=== PATIENT | female | born 1985 | race Caucasian/White ===

== ENCOUNTER 2022-12-15 09:20 | Outpatient (CLI) | payer MEDICAID, SELFPAY | END 2022-12-15 09:21 | disposition home or self-care (01) | LOC: NFLDREF 12-18 12:02 | PROVIDERS: Visit Provider Advanced Practice Midwife | DX: Z34.03 Encounter for supervision of normal first pregnancy, third trimester (principal); O99.320 Drug use complicating pregnancy, unspecified trimester; F12.90 Cannabis use, unspecified, uncomplicated; O26.849 Uterine size-date discrepancy, unspecified trimester; O26.843 Uterine size-date discrepancy, third trimester; Z3A.37 37 weeks gestation of pregnancy | CPT/HCPCS: 80306; 87081; 87653 ==

== ENCOUNTER 2022-12-15 17:03 | Outpatient (CLI) | payer MEDICAID, SELFPAY ==
--- NOTE | 2022-12-15 17:00 | CRLHL7_ITS ---
For Patients: As a result of the Century Cures Act, medical imaging exams and procedure reports are released immediately into your electronic medical record. You may view this report before your referring provider. If you have questions, please contact your health care provider. INDICATION: Size less than dates COMPARISON: none TECHNIQUE: Real time hinkle scale imaging of the fetus was performed as well as color Doppler and spectral Doppler analysis of the umbilical artery. FINDINGS: Sonographic imaging demonstrates a single living intrauterine gestation. Fetus demonstrates a regular cardiac rate of 141 beats per minute. Fetus has a vertex position. The placenta lies anteriorly. Amniotic fluid volume appears normal and there is a single deepest vertical pocket: 6.0 cm. The estimated weight is 2468gm which lies at the 7th %. BPD 8th percentile. HC 7th percentile. AC 10th percentile. FL less than 3rd percentile. The HC/AC ratio measures 1.03 range (0.93-1.11). There is adequate diastolic blood flow within the umbilical artery. The S/D ratio measures 2.6. Normal gross body movements, tone and respiratory activity. IMPRESSION: Sonographic gestational age 34 weeks 5 days and sonographic due date 01/21/2023. Sonographic age 16 days behind the clinical age. Estimated weight 7th percentile. Abdominal circumference 10th percentile. Femur length less than 3rd percentile. Biophysical profile 09/23. Dictated by Mat Naqvi MD @ 12/16/2022 11:27:38 AM (Electronically Signed)
== END 2022-12-15 17:04 | disposition home or self-care (01) ==
PROVIDERS: Visit Provider Advanced Practice Midwife
DX: O36.5930 Maternal care for other known or suspected poor fetal growth, third trimester, not applicable or unspecified (principal); Z3A.34 34 weeks gestation of pregnancy
CPT/HCPCS: 76816; 76819; 76820

== ENCOUNTER 2023-01-11 07:40 | Inpatient (IN) | payer MEDICAID, SELFPAY ==
[2023-01-11] VITALS (11 sets, daily range): BP systolic 109–128; BP diastolic 72–86; PULSE 81–120; RESP 16; TEMP 36.6–37.2; O2SAT 99; BMI 30.5
[2023-01-11 07:40] LABS: Amnisure Rom* POSITIVE
[2023-01-11 08:02] LABS: Basophils Percent Auto 0.3 % (0.0-3.0); Eosinophils Percent Auto 1.2 % (0.0-7.0); Hematocrit 37.4 % (33.0-51.0); Immature Granulocytes Pct Auto 0.4 %; Lymphocytes Percent Auto 23.2 % (20-44); Mean Corpuscular HGB Conc 35 gm/dL (32-36); Mean Corpuscular Hemoglobin 33 pg (26-34); Mean Corpuscular Volume 95 fL (80-100); Monocytes Percent Auto 6.8 % (0.0-11.0); Neutrophils Percent Auto 68.1 % (42.0-72.0); Platelet Count* 178 K/uL (140-440); Red Blood Count 3.93 m/uL (4.00-5.20); White Blood Count* 11.23 K/uL (4.50-11.00)
[2023-01-11] MEDS: LACTATED RINGERS 1000 ML 1,000 ML 500 ML IV (08:14)
[2023-01-11 08:35] LABS: Slide Review Reflex No
--- NOTE | 2023-01-11 08:49 | CRLHL7_ITS ---
For Patients: As a result of the Cures Act, medical imaging exams and procedure reports are released immediately into your electronic medical record. You may view this report before your referring provider. If you have questions, please contact your health care provider. INDICATION: 37 year-old female. Advanced maternal age. TECHNIQUE: Transabdominal obstetrical ultrasound. Grayscale and color spectral Doppler waveform analysis of the umbilical artery performed. COMPARISON: December 15, 2022. FINDINGS: Single living intrauterine in vertex presentation. Anterior placenta. No placenta previa. The full cervix is not seen. heart rate 134 beats per minute. Normal amniotic fluid volume index 12.6 cm. Biophysical profile score 8/8 with 2 points given each for breathing, movement, tone, and amniotic fluid. Biparietal diameter 9.0 cm, 36 weeks 3 days. Head circumference 33 cm, 37 weeks 4 days. Abdominal circumference 34.6 cm, 38 weeks 4 days. Femur length 7 cm, 36 weeks 0 days. Composite calculated ultrasound age 37 weeks 1 day with a sonographic due date of January 31, 2023. This is not concordant with the age based on the last menstrual period provided. This is also delayed by 10 days when correlated with the prior ultrasound which indicated a sonographic due date of January 21, 2023. Estimated weight 3253 g which lies at the 14th percentile. The head to abdominal circumference ratio is normal at 0.95 (0.92-1.05). The umbilical artery systolic to diastolic ratio is 2.7. The resistive index is 0.95. Adequate diastolic blood flow within the umbilical artery. IMPRESSION: 1. Single living intrauterine in vertex presentation. Anterior placenta. 2. Normal amniotic fluid. 3. Normal biophysical profile score 8/8. 4. Composite calculated ultrasound age 37 weeks 1 day with a sonographic due date of January 31, 2023. 5. Percentile growth 14 percent. Dictated by Simon Espinoza MD @ 01/11/2023 11:59:36 AM (Electronically Signed)
--- NOTE | 2023-01-11 08:55 | W.PM.LDBA ---
Subjective History of Present Illness Narrative: Patient is being admitted to Labor and Delivery for SROM with clear fluid. She is a 37 year old at 40.6 weeks gestation. Her full history and physical was dictated by Bronson Espana CNM on 12/15/22. Please see this for details. Nasra experienced SROM this morning around 0400. She has had clear fluid with an occasional pink tinged fluid. She has noticed some contractions with a slight increase since rupture but she is still comfortable with contractions. She has declined ultrasound previously for surveillance of a known IUGR fetus. We discussed the rational for a suggested ultrasound today and she is agreeable to an ultrasound. She is hesitant to augment labor hoping to go into labor on my own and wait until she (baby) is ready. We discussed that based on the ultrasound we will have a better idea of how much labor stress that baby will be likely to tolerate. she did initially have some late decelerations but they resolved with position changes and IV fluid resuscitation. Specific Issues/Plans FOB not involved H&P done by Bronson Espana CNM on 12/15/22 needs Hep B drawn 1. AMA declined genetic screen had FAS at other facility, no abnormalities (not a level II) 2. Measuring small for gestation measured small at first visit with us Growth u/s ordered at 37 weeks: EFW 7%, BPP 8/8, adequate flow in umbilical artery recommended IOL between 38-39weeks pt declined IOL, BPP ordered for 12/22 with clinic visit-declined NST 12/23 and 12/31 reactive Signed AMA form on 12/23 01/07 continues to measure small, declines IOL and BPP 3.Hx of genital herpes pt has RX from prior provider 4. Hx of THC use in early no UDS found in records, Neg at 37 weeks OB Labs: ? Blood type: B+, antibody screen negative. ? Hgb: 13.3 ? Platelets: 241 ? Rubella: Immune ? Varicella: Immune RPR: non-reactive ? HBsAg: non-reactive ?noted in notes, did not see lab results in records Hep C: negative HIV: negative ? UC: negative GC/Chlamydia: negative/negative ? Pap (06/30/22): negative HPV, NILM? Genetic screening: declined 1hr gtt: 61 COVID: 2020 initial series, not boosted Flu: declines TDAP: RSV: declines 32wk Mental Health: 12/02/2022 34wk Hgb: OB - Problem Based A/P Additional Plan (1) growth restriction antepartum: Status: Acute (2) AMA (advanced maternal age) multigravida 35+: Status: Acute (3) SROM (spontaneous rupture of membranes): Status: Acute Plan ASSESSMENT:? at 40.6 weeks gestation? GBS negative? ?comlicated by IUGR and AMA PROM with clear fluid? ?? PLAN:? 1. Agreeable to a growth US with BPP and Doppler ultrasonography 2. Expectant management at this time per patient request. May change based on US results. 3. Candidate for analgesia of choice. 4. Anticipate ? 5. IV in place for access and fluid bolus. 6. Continuous monitoring due to IUGR. 7. MD aware and agreeable to plan at this time. Will continue to update as labor progresses. 8. UDS recommended per protocol based on past use. Declines at this time but is considering. ? Delivery/Labor/Induction Plan Plan: expectant management OB Result Labs Blood Type: B (+) positive GBS Status: negative OB Exam Physical Exam Vital signs: Temp Pulse Resp BP Pulse Ox 98.9 F 103 H 16 109/72 99 01/11/23 08:22 01/11/23 08:22 01/11/23 08:22 01/11/23 08:22 01/11/23 06:58 Narrative: Psychiatric:? Alert and oriented x3? HEENT:? Normocephalic, atraumatic? Neck:? Supple without adenopathy or thyromegaly? Lungs:? Clear to auscultation bilaterally? Heart:? Regular rate and rhythm, no murmur, rub or gallop? Abdomen:? Soft, nontender, and gravid? Extremities:? No edema or erythema? Detailed Labor and Delivery Exam Patient Gravid: Yes Dilation (cm): 1 (per RN exam) Effacement (%): 30 Consistency: soft Tachysystole: No Contraction intensity: Mild Fetus (Single) Station: -3 Amniotic Membrane Status: SROM Amniotic Membrane Fluid Description: Clear Heart Rate Baseline: 140 Monitor Accelerations: Present Monitor Decelerations: None Chcf Variability: Moderate (6-25)
[2023-01-11 10:03] LABS: Hepatitis B Surface Antigen* Negative (Negative)
[2023-01-11] MEDS: LACTATED RINGERS 1000 ML 1,000 ML 125 ML IV (10:16)
[2023-01-11 10:19] LABS: Amphetamine Screen Urine Negative (Negative); Barbiturate Screen Urine Negative (Negative); Benzodiazepines Screen Urine Negative (Negative); Cannabinoid Screen Urine Negative (Negative); Cocaine Screen Urine Negative (Negative); Methadone Screen Urine Negative (Negative); Methamphetamines Screen Urine Negative (Negative); Opiate Screen Urine Negative (Negative); Oxycodone Screen Urine Negative (Negative); Phencyclidine Screen Urine Negative (Negative); Tricyclic Antidepressant Urine Negative (Negative)
[2023-01-11 10:29] LABS: Hepatitis B Surface Antibody* Positive (Negative)
--- NOTE | 2023-01-11 16:53 | PM.OBPNL ---
Subjective Time Seen by Provider: 16:54 Date Seen: 01/11/23 Narrative: I discuses with the patient steps to proceed with labor around 1600 as she had been ruptured 12 hours at that time. She had been encouraged by myself ad the RN to move, change positions, do the labor warm up circuit, and/or pump to encourage labor. She was resistant most of the morning. She did do some swaying and walking mixed with sitting. she was feeling slightly more uncomfortable cramping at a 4-5/10 about every 5 minutes but was not pausing thorough contractions when I was talking to her. We discussed options in depth including expectant management, PO Cytotec, and IV Pitocin. We did discuss the option of a SVE to check on cervical change or to proceed with augmentation without a cervical check. She choose a cervical check and was found to be mostly unchanged with only slight additional effacement and slightly lower but still ballotable. She was 1.5cm/50%/-2 and ballotable. With this knowledge we again reviewed options and I recommended augmentation with Pitocin. Did give her the option of Cytotec but did discuss that there was a chance that there may be intolerance given that baby had occasional late decels and that we would have to switch to Pitocin. She asked for some time to think about her options and I stepped out of the room. She walked in the bowers for a bit then called me back to review her decision about 45 minutes later. At that time she stated that she would like to discharge home to labor there as she felt that she would be more comfortable laboring there and felt she would be more likely to go into labor on her own away from the hospital setting. I Asked if there was anything that we could do to make her more comfortable here and she denies. She stated that she felt that she shouldn't have come in this morning after rupture and that she should have stayed at home to wait for labor. I Educated her that she did make the correct decision coming in and that was the safest decision for her and her baby. I stated that I was not comfortable with her decision to go home given that she has been ruptured without signs of labor for greater than 12 hours and because the tracing had not been consistently category 1. Discussed again that baby has had occasional late decelerations that can indicate a compromised fetus. Although the tracing at this time was reassuring, given the history it was a good possibility that baby could return to a category 2 or worse. I discussed the risks of prolonged rupture including infection and intolerance. Discussed that tolerance and status can decrease or stop suddenly and without signs or symptoms without continuous monitoring. Risks discussed included and/or maternal injury or . She voiced understanding of the recommendations and risks, denied questions and is still requesting to discharge. We discussed that I would not sign a discharge order for her and that she would have to sign against medical advice documentation before leaving to acknowledge that she understands the risks and recommendations. Reiterated multiple times that I was concerned for her and her baby with this decision. Encouraged her to return in a few hours. She states that she would likely return by 12 hours if not before. Encouraged her to consider not more than 6 hours. The risks, concerns, and warning signs were reviewed again by the RN before signing the AMA paperwork. She was accompanied by her parents. Objective Vital Signs: Last Vital Signs Temp 98.7 F 01/11/23 16:40 Pulse 93 01/11/23 16:40 Resp 16 01/11/23 16:40 BP 128/86 01/11/23 16:40 Pulse Ox 99 01/11/23 06:58 Pelvic Exam Dilation (cm): 1.5 Effacement (%): 50 Station: -2 Comments: bollatable Contractions Monitor mode: External Contraction Frequency: 2-5 Contraction pattern: Irregular Contraction intensity: Mild Assessment Assessment: early labor Station: -3 Amniotic Membrane Status: SROM Status: Category ll Heart Rate Baseline: 140 Senior Living Variability: Moderate (6-25) (some periods of minimal) Monitor Accelerations: Present Monitor Decelerations: Late (occasional, none present at this time) Plan Plan: Encouraged augmentation with pitocin or cytotec. Declines and leaving AMA.
[2023-01-13 18:49] LABS: Hepatitis B Core Antibody, IgM Negative (Negative)
== END 2023-01-11 17:28 | disposition left against medical advice (07) | DRG 833 ==
LOC: OB OUT 07:41 → OB 07:41
PROVIDERS: Admitting Provider Advanced Practice Midwife; Visit Provider Advanced Practice Midwife
DX: O42.92 Full-term premature rupture of membranes, unspecified as to length of time between rupture and onset of labor (principal); O36.5930 Maternal care for other known or suspected poor fetal growth, third trimester, not applicable or unspecified; Z86.19 Personal history of other infectious and parasitic diseases; O99.344 Other mental disorders complicating childbirth; F41.9 Anxiety disorder, unspecified; Z3A.40 40 weeks gestation of pregnancy; O36.8330 Maternal care for abnormalities of the fetal heart rate or rhythm, third trimester, not applicable or unspecified
CPT/HCPCS: 36415; 76815; 76819; 76820; 80306; 84112; 85025; 86705; 86706; 86850; 86900; 86901; 87340; J7120

== ENCOUNTER 2023-01-12 01:09 | Inpatient (IN) | payer MEDICAID, SELFPAY ==
[2023-01-12] VITALS (10 sets, daily range): BP systolic 93–133; BP diastolic 52–93; PULSE 68–96; RESP 16–18; TEMP 36.6–36.9; O2SAT 97–98; BMI 30.6
--- NOTE | 2023-01-12 02:26 | W.PM.LDBA ---
Subjective History of Present Illness Narrative: Patient is being admitted again to Labor and Delivery after leaving AM earlier in the evening. She is a 37 year old at 41.0 weeks gestation. Her full history and physical was dictated by Bronson Espana CNM on 12/15/22. Please see this for details. She has labored at home. She states that she has worked to increase the frequency and strength of her contractions with movement and stretches. She felt that her contractions were more intense and decided to return. On admit she was found to be 1.5cm/75%/-2 and posterior by RN exam. We again had a discussion about augmenting labor. We discussed Pitocin and Cytotec but I did not recommend Cytotec given her contractions spacing along with the late decelerations that were noted on the tracing up to this point. She was again hesitant to do any interventions stating that she wanted to forget the 24 hour clock and trust that her body will begin labor on its own. I again discussed my concerns for baby tolerating labor and the possibility of additional stress that prolonged rupture could present since baby is already showing some signs of stress with late decelerations. Discussed that she could be at an increased risk of a delivery due to intolerance of labor. She states that she wants to give her body a few more hours to see what happens. She would like therapeutic rest after the risks and benefits were discussed. She hesitantly agreed to consider augmentation in a couple of hours if her contractions decrease in frequency and/or intensity. Specific Issues/Plans FOB not involved H&P done by Bronson Espana CNM on 12/15/22 needs Hep B drawn 1. AMA declined genetic screen had FAS at other facility, no abnormalities (not a level II) 2. Measuring small for gestation measured small at first visit with us Growth u/s ordered at 37 weeks: EFW 7%, BPP 8/8, adequate flow in umbilical artery recommended IOL between 38-39weeks pt declined IOL, BPP ordered for 12/22 with clinic visit-declined NST 12/23 and 12/31 reactive Signed AMA form on 12/23 01/07 continues to measure small, declines IOL and BPP 3.Hx of genital herpes pt has RX from prior provider 4. Hx of THC use in early no UDS found in records, Neg at 37 weeks OB Labs: ? Blood type: B+, antibody screen negative. ? Hgb: 13.3 ? Platelets: 241 ? Rubella: Immune ? Varicella: Immune RPR: non-reactive ? HBsAg: non-reactive ?noted in notes, did not see lab results in records Hep C: negative HIV: negative ? UC: negative GC/Chlamydia: negative/negative ? Pap (06/30/22): negative HPV, NILM? Genetic screening: declined 1hr gtt: 61 COVID: 2020 initial series, not boosted Flu: declines TDAP: RSV: declines 32wk Mental Health: 12/02/2022 34wk Hgb: OB - Problem Based A/P Additional Plan (1) SROM (spontaneous rupture of membranes): Status: Acute (2) AMA (advanced maternal age) multigravida 35+: Status: Acute (3) growth restriction antepartum: Status: Acute (4) Prolonged rupture of membranes: Status: Acute Plan ASSESSMENT:? at 41.0 weeks gestation? GBS negative? complicated by IUGR and AMA. Latest US shows EFW 14%.? Ruptured greater than 22hours. ?? PLAN:? 1. Reviewed risks and benefits of augmentation with Pitocin vs Cytotec. Recommended Pitocin. Declines at this time. Educated on the risks of prolonged ROM. 2. Candidate for analgesia of choice. Planning unmedicated .? 3. Therapeutic rest. She will consider Pitocin after 2 hours of rest. 4. Anticipate ? 5. Expectant management at this time.? 6. Recommend saline lock IV placed for periods of category II tracing and IUGR. 7. Continuous monitoring for IUGR diagnosis and category II tracing.? ? OB Result Labs Blood Type: B (+) positive GBS Status: negative OB Exam Physical Exam Vital signs: Pulse BP Pulse Ox 88 123/86 98 01/12/23 01:20 01/12/23 01:20 01/12/23 01:20 Narrative: Psychiatric:? Alert and oriented x3? HEENT:? Normocephalic, atraumatic? Neck:? Supple without adenopathy or thyromegaly? Lungs:? Clear to auscultation bilaterally? Heart:? Regular rate and rhythm, no murmur, rub or gallop? Abdomen:? Soft, nontender, and gravid? Extremities:? No edema or erythema? Detailed Labor and Delivery Exam Patient Gravid: Yes Dilation (cm): 1 (1.5 per RN exam) Effacement (%): 75 Cervix position: posterior Contraction Frequency: 3-5 Tachysystole: No Contraction intensity: Moderate Fetus (Single) Station: -2 Amniotic Membrane Status: SROM Amniotic Membrane Fluid Description: Clear Heart Rate Baseline: 140 Monitor Accelerations: Present Monitor Decelerations: Late (occasional ) Care Home Variability: Moderate (6-25)
[2023-01-12] MEDS: hydrOXYzine pamoate 25 MG CAPSULE 100 MG PO (02:36)
[2023-01-12] MEDS: MORPHINE 10 MG/ML inj IM (02:37)
[2023-01-12] MEDS: CALCIUM CARBONATE 500 MG CHEW PO (02:37)
--- NOTE | 2023-01-12 06:26 | P.OBPN_ITS ---
Subjective Date Seen: 01/12/23 Narrative: Nasra did sleep for a while and was appreciative of that rest. I again discussed a plan as her contractions have spaced out to 6-8 minutes apart. Baby is still having lates with many of the contractions. I again emphasized my concerns with prolonged rupture and baby showing signs of intolerance to contractions. I did offer her Cytotec and Pitocin but did encourage Pitocin over Cytotec due to the added risks of not knowing how baby will tolerate it. She would again like some time to think about it before making a decision. She was informed that the next shift will be coming on in about 1 hours and that provider will be in to talk about her decision unless she wants to make a decision before then. I answered any questions she did have and we did discuss risks to baby and her with prolonged rupture. Offered another SVE with education about limiting cervical checks after ROM but she declined. Objective Vital Signs: Last Vital Signs Temp 98.2 F 01/12/23 06:02 Pulse 68 01/12/23 06:02 Resp 16 01/12/23 06:02 BP 93/52 L 01/12/23 06:02 Pulse Ox 97 01/12/23 06:02 Contractions Monitor mode: External Contraction Frequency: 6-8 Contraction pattern: Irregular Contraction intensity: Moderate Assessment Assessment: early labor Station: -2 Amniotic Membrane Status: SROM Status: Category ll Heart Rate Baseline: 140 [place] Variability: Moderate (6-25) Monitor Accelerations: Present Monitor Decelerations: Late (with greater than half of contractions ) Plan Plan: Recommended Pitocin titration. Will wait for her to make a decision. Monitor VS per protocol. UDS per unit policy for leaving AMA. Encourage activity, labor warm up, and pumping or nipple stimulation to help encourage labor after sleep.
[2023-01-12 06:40] LABS: Amphetamine Screen Urine Negative (Negative); Barbiturate Screen Urine Negative (Negative); Benzodiazepines Screen Urine Negative (Negative); Cannabinoid Screen Urine Negative (Negative); Cocaine Screen Urine Negative (Negative); Methadone Screen Urine Negative (Negative); Methamphetamines Screen Urine Negative (Negative); Opiate Screen Urine Negative (Negative); Oxycodone Screen Urine Negative (Negative); Phencyclidine Screen Urine Negative (Negative); Tricyclic Antidepressant Urine Negative (Negative)
--- NOTE | 2023-01-12 07:33 | PM.OBPNL ---
Subjective Time Seen by Provider: 07:34 Date Seen: 01/12/23 Narrative: Nasra is currently resting in bed. She states she is barely feeling the contractions at this time. We reviewed that they have spaced to 5-9 min apart and are not strong. We reviewed the increased risk of infection the longer she is ruptured and not in labor. That this could mean a if the baby was not tolerating it, as their heart rate often goes up. This would also likely mean antibiotics for both her and baby. We also reviewed the early and late decels that we are seeing with contractions, and that the longer the process is the less likely that the baby will tolerate the continued contractions and the increased risk of infection. The recommendation at this time remains pitocin augmentation because of these reasons. We did review the options of cytotec, with the risk being that it can not be stopped or slowed down like pitocin. Also reviewed the option of AROM, as she is not leaking much fluid. She continues to decline all of these options despite being aware of the risks. She is aware to tell the RN/CNM if she desires to proceed with any of these options. Objective Exam: VSS, afebrile General Appearance:? Calm, cooperative. No acute distress. ? Psychiatric Exam: Alert and oriented, appropriate affect Abdomen: Gravid Ctx: ?Q 5-9 min apart. ?Mild FHTs: Baseline: 130. Variability: min - mod. Accels: rare. Decels: early & lates with most contractions. SVE: deferred at this time. Membranes: SROM AROM X 27.5 hours ? Vital Signs: Last Vital Signs Temp 98.4 F 01/12/23 07:08 Pulse 72 01/12/23 07:31 Resp 16 01/12/23 07:08 BP 94/62 01/12/23 07:31 Pulse Ox 97 01/12/23 06:02 Assessment Heart Rate Baseline: 140 Plan Plan: Assessment:?? at 41.0 gestation?? GBS neg Patient is coping well with challenges of labor.?? PROM, clear fluid. -Not in labor. Declines IOL/augmentation Not in labor complicated by: -AMA -IUGR. -EFW 7% at 37 weeks. -Declined most follow up BPPs, monitoring and induction -u/s yesterday shows EFW 14%, ALEXIS WNL at 12.6, BPP 8/8 and normal cord doppler -Hx of genital herpes, on valtrex -Hx of THC use in early -Neg at 37 weeks Labor complicated by: -PROM, not in labor, declining IOL/augmentation -late decels ? Plan:?? Will continue to encourage IOL/Augmentation for PROM. Dr. Martini also aware. Continue to monitor for late decelerations, infection, or other complications. Continue with routine intrapartum cares as ordered.?? Patient encouraged to move and change positions, including labor circuit to promote physiologic labor and .?? Nonpharmacologic comfort measures per patient preference. Candidate for analgesia of choice if desired. Anticipate progress to NVD.
--- NOTE | 2023-01-12 11:41 | PM.OBPNL ---
Subjective Time Seen by Provider: 11:30 Date Seen: 01/12/23 Narrative: Nasra has decided again to leave AMA. She states she came in last night because the contractions were increasing in intensity, but that they seem to have down again at this time. She is aware of the recommendation for augmentation and has declined it. When asked what her ultimate plan was if she did not go into labor, she stated she would likely be ready to do something by Thursday, 2 days from now. We reviewed ways of encouraging labor, including castor oil, movement and acupressure, though she did not commit to trying any of these. Nipple stimulation was also offered previously and declined. We reviewed the risks of leaving AMA, including but not limited to infection for her and the baby, increased risk of for intolerance, infection, etc., risk of stillbirth, risk of brain damage. We reviewed that she should return if contractions increased in intensity, fluid became meconium stained, signs of infection occurred (fever, chills, vaginal/amniotic fluid odor. etc), movement was decreased, bleeding. She can return at any time for monitoring and/or augmentation. She should return tomorrow for an NST if she has not returned prior to that. AMA form signed. Her mother was present for this discussion also. Objective Exam: VSS, afebrile General Appearance:? Calm, cooperative. No acute distress. ? Psychiatric Exam: Alert and oriented, appropriate affect Abdomen: Gravid Ctx: ?Q 5-10 min apart. ?Mild FHTs: Baseline: 140. Variability: moderate. Accels: present. Decels: Occ early and late decels. SVE: deferred at this time Membranes: SROM X 31.5 hours ? Vital Signs: Last Vital Signs Temp 98.4 F 01/12/23 10:29 Pulse 90 01/12/23 08:44 Resp 16 01/12/23 10:29 BP 133/93 H 01/12/23 08:44 Pulse Ox 97 01/12/23 06:02 Plan Plan: Assessment:?? at 41.0 gestation?? GBS negative complicated by: -AMA -IUGR. -EFW 7% at 37 weeks. -Declined most follow up BPPs, monitoring and induction -u/s yesterday shows EFW 14%, ALEXIS WNL at 12.6, BPP 8/8 and normal cord doppler -Hx of genital herpes, on valtrex -Hx of THC use in early -Neg at 37 weeks Labor complicated by: -PROM X 31.5, not in labor, declining IOL/augmentation -Occ late and early decels, somewhat improved from earlier -declines to stay in hospital for continued monitoring ? Plan:?? AMA form signed. Risks to her and baby extensively reviewed. May return at any time. Return tomorrow for NST. Also reviewed concerning signs she should be seen for. Per pt, her plan would not be to allow any augmentation until possibly Thursday, 2 days from now.
== END 2023-01-12 11:55 | disposition left against medical advice (07) | DRG 832 ==
PROVIDERS: Admitting Provider Advanced Practice Midwife; Visit Provider Advanced Practice Midwife
DX: O42.12 Full-term premature rupture of membranes, onset of labor more than 24 hours following rupture (principal); O98.313 Other infections with a predominantly sexual mode of transmission complicating pregnancy, third trimester; A60.00 Herpesviral infection of urogenital system, unspecified; O36.5930 Maternal care for other known or suspected poor fetal growth, third trimester, not applicable or unspecified; Z3A.41 41 weeks gestation of pregnancy; O48.0 Post-term pregnancy
CPT/HCPCS: 80306; 85025; A9270; J2270

== ENCOUNTER 2023-01-13 09:43 | Inpatient (IN) | payer MEDICAID, SELFPAY ==
[2023-01-13] VITALS (25 sets, daily range): BP systolic 111–138; BP diastolic 73–90; PULSE 75–111; RESP 20; TEMP 36.6–37.2; O2SAT 86–100; BMI 30.6
[2023-01-13 10:15] LABS: Amphetamine Screen Urine Negative (Negative); Benzodiazepines Screen Urine Negative (Negative); Cannabinoid Screen Urine Negative (Negative); Cocaine Screen Urine Negative (Negative); Methamphetamines Screen Urine Negative (Negative); Opiate Screen Urine POSITIVE (Negative); Phencyclidine Screen Urine Negative (Negative); Tricyclic Antidepressant Urine Negative (Negative)
[2023-01-13 10:16] LABS: Barbiturate Screen Urine Negative (Negative); Methadone Screen Urine Negative (Negative); Oxycodone Screen Urine Negative (Negative)
--- NOTE | 2023-01-13 12:16 | P.LDBA_ITS ---
Subjective History of Present Illness Date Seen: 01/13/23 Narrative: Nasra is being admitted to Labor and Delivery for PROM without onset of labor. She had SROM on 01/11/23, she left AMA around 1800 on that day and returned on 01/12/23 around 0300, again left AMA around 1230. Today she returned for a NST. She is a 37 year old at 41.1weeks gestation. Her full history and physical was dictated by Bronson Espana CNM on 12/15/22. Please see this for details. Nasra was planning on leaving today AMA. After going to the bathroom just prior to leaving she noted yellow/green discharge on her pad. This has prompted her to stay for observation. At this time she is declining all augmentation of her labor including AROM, prostaglandins and Pitocin. We have discussed in detail the increased risk of infection for herself and baby, the risk of still , brain damage to the fetus and risk of needing further intervention at time of delivery for baby, including the risk of transfer to another facility. At this time she is not willing to move forward with induction of her labor. She will consider interventions at 1800 this evening. I have requested Dr. Segundo, OB-Land Examiner state federal relations deputy director to consult on this patient. Specific Issues/Plans FOB not involved H&P done by Bronson Espana CNM on 12/15/22 needs Hep B drawn 1. AMA declined genetic screen had FAS at other facility, no abnormalities (not a level II) 2. Measuring small for gestation measured small at first visit with us Growth u/s ordered at 37 weeks: EFW 7%, BPP 8/8, adequate flow in umbilical artery recommended IOL between 38-39weeks pt declined IOL, BPP ordered for 12/22 with clinic visit-declined NST 12/23 and 12/31 reactive Signed AMA form on 12/23 01/07 continues to measure small, declines IOL and BPP 3.Hx of genital herpes pt has RX from prior provider 4. Hx of THC use in early no UDS found in records, Neg at 37 weeks OB Labs: ? Blood type: B+, antibody screen negative. ? Hgb: 13.3 ? Platelets: 241 ? Rubella: Immune ? Varicella: Immune RPR: non-reactive ? HBsAg: non-reactive ?noted in notes, did not see lab results in records Hep C: negative HIV: negative ? UC: negative GC/Chlamydia: negative/negative ? Pap (06/30/22): negative HPV, NILM? Genetic screening: declined 1hr gtt: 61 COVID: 2020 initial series, not boosted Flu: declines TDAP: RSV: declines 32wk Mental Health: 12/02/2022 34wk Hgb: OB - Problem Based A/P Additional Plan (1) Prolonged rupture of membranes: Status: Acute (2) AMA (advanced maternal age) multigravida 35+: Status: Acute (3) growth restriction antepartum: Status: Acute (4) History of herpes genitalis: Status: Acute Plan Assessment:?? at 41.1 weeks gestation?? GBS negative? Patient is coping with challenges of labor.?? Labor type: PROM for greater than 48 hours without onset of labor. Category 2 FHR pattern.? complicated by: AMA >35 yr, FGR, 7% on initial measurements, last measurement showed 14% measuring small for dates, hx of genital herpes, THC use in early Labor complicated by: PROM for >48 hours without onset of labor? Plan:?? * ?Admit to L & D? * IV access: SL * Monitoring per policy: continuous ? * Candidate for analgesia of choice.? Planning no intervention for pain management * Encouraged to move forward with augmentation of her labor by any method agreeable to patient. Will continue to check in periodically. * Consult with OB-Land Examiner for prolonged ROM. * Patient encouraged to reposition and ambulate to promote physiologic labor and . * Anticipate ? Delivery/Labor/Induction Plan Plan: expectant management and other OB Exam Physical Exam Vital signs: Temp Pulse BP 98.4 F 80 116/73 01/13/23 10:31 01/13/23 10:31 01/13/23 10:31 Narrative: Vitals Reviewed Constitutional:? Alert and oriented x3 HEENT:? Normocephalic, atraumatic Neck:? Supple Lungs:? Clear to auscultation bilaterally Heart:? Regular rate and rhythm, no murmur, rub or gallop Abdomen:? Soft, nontender, and gravid. Vertex by Drake's, confirmed with cervical exam. Extremities:? No edema or erythema Cervix: declined by patient NST: 140 bpm/moderate variability/+accelerations/ occasional late decelerations/ irregular contractions Detailed Labor and Delivery Exam Patient Gravid: Yes
--- NOTE | 2023-01-13 13:24 | PM.OBCN1 ---
OB - CN: HPI Date of Consult Date Seen: 01/13/23 Consult date: 01/13/23 Requesting Physician: Mack Lassiter CNM Primary Care Provider: Mack Lassiter CNM Consult Narrative Narrative: Nasra is a 37-year-old [id number] woman at 41 weeks, 1 day gestation by LMP consistent with 1st trimester ultrasound, LEE , who is seen by kind request of Mack Lassiter for discussion of prolonged premature rupture of membranes post term. She had rupture membranes at 4:00 a.m. on 01/11/2023. Documented in previous notes, she has come to the Center for monitoring, but has opted to leave against medical advice, and has thus far refused induction of labor. Today, when presenting for monitoring, she was found to have yellow/green discharge, thought to be meconium staining, and she did opt to stay today for observation given this new finding. She is not having regular contractions. Group B strep testing was negative. Her problem list is also reviewed. It is most notable at this time for: 1. History of genital herpes. She was prescribed Valtrex 500 mg daily by an outside provider, which she has been taking as prescribed. The correct dose for HSV prophylaxis in is 500 mg b.i.d.. She is aware of no genital lesions. 2. Possible intrauterine growth restriction. Ultrasound on 12/16/2022, ordered for indication of size less than dates, showed EFW 2468 g, 7%. AC 10%. Umbilical artery Doppler was normal. BP was 8/8. MVP 6 cm. Follow-up ultrasound 01/11/2023 showed EFW 14%, AC within normal ranges. Umbilical artery Doppler was normal. Amniotic fluid was also normal. At time of her anatomy scan, EFW was apparently 12%. 3. She has a history of THC use, but she was negative on her drug testing from 30/ weeks. Social history: She is originally from [place]. Her parents live in the area. She was living in [place] for some time, and conceived while there. She has no relationship with the father of the baby at this time. Her parents have been visiting her in the hospital. She transferred care to [place] at 35 weeks in order to have care with midwives. She values nonintervention. History History 5 Elective abortions 3 Para 0 Spontaneous abortions 1 Hx # Term Pregnancies Ectopic pregnancies Hx # Pregnancies Multiple births Number of Living Children 0 Past Pregnancies Del. Date GA/Weeks Outcome Route wt Inf Gender Labor Lgth Anesthesia Location Provider Compli 02/16/14 elective 02/16/15 spontaneous 02/17/16 elective 02/17/20 elective Labs GBS status: negative OB Labs: Lab Assessment Start: 01/13/23 10:56 Freq: ONCE Status: Complete Protocol: PC.OBGBS Activity Type Activity Date Activity User E-sign Co-sign Detail Recorded Client Recorded Date Recorded By Document 01/13/23 10:56 ROMARIA ISABEL [id number] 01/13/23 10:58 ROYB 01/13/23 10:56 Lab Assessment GBS Status negative GBS Additional Criteria ROM Greater Than 18 Hours Is Patient Allergic to Penicillin? No Treatment Required OK Are Labs Available Yes Maternal Blood Type B Maternal RH Factor Positive Evaluate Maternal Rubella Immune Status Immune Hepatitis B Surface Antigen Negative Maternal HIV Status Negative Maternal Syphillis (RPR) Status Negative PFSH PFSH Medical History History of migraine headaches ?Z86.69 - Personal history of other diseases of the nervous system and sense organs (ICD-10) Family History Mother Depression Anxiety Father High blood pressure Arthritis Brother Anxiety Autism Maternal Grandmother Anxiety Depression Maternal Grandfather Parkinson disease Paternal Grandfather Parkinson disease Alzheimers disease Cancer Social History (Updated 12/15/22 @ 09:22 by Candelaria Espana CNM) Narrative: SOCIAL Education: associates 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 Safe at home Special Diet: plant based and vegetarian Ok with a blood transfusion: yes Culture or latter-day beliefs: denies RISK FACTORS Exercise Times/wk: walking daily less lately Depression/Anxiety: yes Previous Treatments as a teen Therapy recently doing some, encouraged to return if helpful KATHIA: 1 PHQ 9: 6 Seat Belt Use: Routinely Smoking: past Smoked 3-4 years, one per day Alcohol/day: Denies while Some minimal use in early , none since. When not rarely used. Caffeine: not with , was daily coffee drinker. Drug Use: THC , a couple medicine ceremonies, prior to . Reports THC use in early . What is your current living situation?: I presently have a place to live Problems where you live: no known problems In the past 12 months, utilities in danger of being shut off: no In past 12 months, lack of transportation kept you from medical appts, meetings, work, or getting things needed for daily living: no In the past 12 mos, have been you worried that your food would run out before you had money to buy more?: never true In the past 12 mos, the food you bought just didn't last and you didn't have money to buy more?: never true Smoking Status: Former smoker How often does anyone, including family, friends and others, physically hurt you: never How often does anyone, including family, friends and others, insult or talk down to you: never How often does anyone, including family, friends and others, threaten you with harm: never How often does anyone, including family, friends and others, scream or curse at you: never Little interest or pleasure in doing things: several days Feeling down, depressed, or hopeless: several days Meds Home Medications and Allergies Home Medications Medication Instructions Recorded Confirmed Type vits no.126-ferrous fum 4 tab PO DAILY 12/02/22 01/13/23 History 28 mg iron-folic acid 800 mcg tablet (Classic ) valacyclovir 500 mg tablet 500 mg PO QDAY 12/02/22 01/13/23 History (Valtrex) Allergies Allergy/AdvReac Type Severity Reaction Status Date / Time No Known Drug Allergies Allergy Verified 01/12/23 04:56 OB - H&P: Exam Physical Exam: Vital signs: Temp Pulse BP 98 F 82 131/90 H 01/13/23 13:12 01/13/23 13:12 01/13/23 13:12 Narrative: Physical exam: Vitals as noted above. General: No acute distress Psych: Alert and oriented x 3, full affect HEENT: Normocephalic, atraumatic OB - CN: A/P Assessment and Plan (1) Prolonged rupture of membranes: Status: Acute Assessment and Plan: Membranes ruptured greater than 48 hours. Now with new onset of suspected meconium-stained fluid. A probable cause of meconium staining is subclinical intra amniotic infection. I did review with the patient that this as a risk of prolonged rupture, consistent with what Mack has documented in her notes. I think that induction at this time is actually MOST consistent with her goals of having a that, overall, requires less intervention. I reviewed with the patient that intrauterine infection can lead to distress, prolonged labor, hemorrhage, and increased risk of . We discussed options of oral cytotec and pitocin, depending on cervical exam. (2) growth restriction antepartum: Status: Acute Assessment and Plan: Given this suspicion, continuous monitoring is advised. (3) History of herpes genitalis: Status: Acute Assessment and Plan: She has been using Valtrex at a low dose of 500 mg daily. I recommend increase to BID, per ACOG recommendations. Plan In summary, I medically recommend: 1. Cervical exam now, with induction of labor with pitocin or oral Cytotec, depending on exam. Of note, EITHER of these approaches can be stopped once she reaches active labor. 2. Vulvar and vaginal exam now, to rule out herpetic lesions. 3. Increase in Valtrex dosing to 500 mg BID. 4. Continuous monitoring, as is currently being used. These recommendations were discussed with both Mack and Nasra.
--- NOTE | 2023-01-13 14:20 | P.OBPN_ITS ---
Subjective Date Seen: 01/13/23 Narrative: ?Nasra is coping well with labor pain/contractions. ?She does not have anyone with her for support at this time. ?She would like to continue with movement, repositioning and relaxation for comfort and pain management.?She is agreeable to some kind of intervention to help her labor intensify around 1500 today. Objective Exam: VSS, afebrile General Appearance:? Calm, cooperative. ?No acute distress. ? Psychiatric Exam: Alert and oriented, appropriate affect Abdomen: Gravid Ctx: ?Q 2-4 min apart. ?Mild ? ? FHTs: ?Baseline: 135. ? ? Variability: moderate. ?Accels: +. ? ?Decels: ?-. SVE: deferred Membranes: ?SROM X 58 hours Visual exam of vulva and vagina: no signs of herpetic lesions Vital Signs: Last Vital Signs Temp 98 F 01/13/23 13:12 Pulse 79 01/13/23 13:30 BP 120/77 01/13/23 13:30 Plan Plan: Assessment:?? at 41.1 gestation?? GBS negative Patient is coping well with challenges of labor.?? Labor type: PROM, Early labor? complicated by: AMA >35 yr, FGR, 7% on initial measurements, last measurement showed 14% measuring small for dates, hx of genital herpes, THC use in early Labor complicated by: PROM for >48 hours without onset of labor? Plan:?? * IV access: SL * Monitoring per policy: continuous ? * Candidate for analgesia of choice.? Planning no intervention for pain management * Encouraged to move forward with augmentation of her labor by any recommended method agreeable to patient. * Valtrex 500mg po BID ordered, first dose now if no dose this AM. * Vaginal exam around 1500 or as soon as patient allows. * Patient encouraged to reposition and ambulate to promote physiologic labor and . * Anticipate ? ?
--- NOTE | 2023-01-13 15:11 | P.OBPN_ITS ---
Subjective Date Seen: 01/13/23 Narrative: ?Nasra is coping well with labor pain/contractions. She has just finished lunch and is standing at the bedside. ?She would like to continue with movement and repositioning for comfort and pain management.? Objective Exam: VSS, afebrile General Appearance:? Calm, cooperative. ?No acute distress. ? Psychiatric Exam: Alert and oriented, appropriate affect Abdomen: Gravid Ctx: ?Q 3-5 min apart. ?Mild ? ? FHTs: ?Baseline: 135. ? ? Variability: moderate. ?Accels: +. ? ?Decels: ?-. SVE: 2/100/-1 Membranes: ?SROM ? X 59hours, forebag AROM for meconium stained fluid. Vital Signs: Last Vital Signs Temp 98 F 01/13/23 13:12 Pulse 79 01/13/23 13:30 BP 120/77 01/13/23 13:30 Pelvic Exam Dilation (cm): 2 Effacement (%): 100 Station: -1 Contractions Monitor mode: External Contraction Frequency: 3-5 Contraction pattern: Regular Contraction intensity: Mild Assessment Station: -1 Amniotic Membrane Status: SROM (>48 hours) Status: Category ll Heart Rate Baseline: 135 Sheeter Operator Variability: Moderate (6-25) Monitor Accelerations: Present Monitor Decelerations: Variable Plan Plan: Assessment:?? at 41.1 gestation?? GBS neg Patient is coping with challenges of labor.?? Labor type: Spontaneous, Early labor? complicated by: AMA >35 yr, FGR, 7% on initial measurements, last measurement showed 14% measuring small for dates, hx of genital herpes, THC use in early Labor complicated by: PROM for >48 hours without onset of labor? Plan:?? * IV access: SL * Monitoring per policy: continuous ? * Candidate for analgesia of choice.? Planning no intervention for pain management * AROM of forebag with meconium stained fluid presnt. * Reevaluate as needed, consider augmentation with IV Pitocin if no increase in contraction frequency or intensity. * Patient encouraged to reposition and ambulate to promote physiologic labor and . * Anticipate ? ?
[2023-01-13 17:39] LABS: Hematocrit 34.8 % (33.0-51.0); Hemoglobin* 11.8 gm/dL (12.0-16.0); Lymphocytes Percent Auto 17.7 % (20-44); Mean Corpuscular HGB Conc 34 gm/dL (32-36); Mean Corpuscular Hemoglobin 33 pg (26-34); Mean Corpuscular Volume 97 fL (80-100); Monocytes Percent Auto 7.1 % (0.0-11.0); Neutrophils Percent Auto 73.1 % (42.0-72.0); Platelet Count* 170 K/uL (140-440); RDW Coefficient of Variation % 12.8 % (11.5-15.5); White Blood Count* 10.36 K/uL (4.50-11.00)
[2023-01-13 17:40] LABS: Basophils Absolute Auto 0.01 K/uL (0.00-0.30); Basophils Percent Auto 0.1 % (0.0-3.0); Eosinophils Absolute Auto 0.07 K/uL (0.00-0.50); Eosinophils Percent Auto 0.7 % (0.0-7.0); Immature Granulocytes Abs Auto 0.13 K/uL (0.00-0.30); Immature Granulocytes Pct Auto 1.3 %
[2023-01-13 17:47] LABS: Slide Review Reflex No
--- NOTE | 2023-01-13 17:51 | P.OBPN_ITS ---
Subjective Date Seen: 01/13/23 Narrative: ?Karen is coping well with labor pain/contractions. ? She does not have a support person with her by her choice. ?She would like to continue with breathing, repositioning and movement for comfort and pain management.? Objective Exam: VSS, afebrile General Appearance:? Calm, cooperative. ?No acute distress. ? Psychiatric Exam: Alert and oriented, appropriate affect Abdomen: Gravid Ctx: ?irregular 2-6 ?Mild ? ? FHTs: ?Baseline: 150. ? ? Variability: moderate. ?Accels: +. ? ?Decels: ?-. SVE: deferred at this time Membranes: ?SROM ? >48 hours Vital Signs: Last Vital Signs Temp 98.8 F 01/13/23 17:10 Pulse 77 01/13/23 17:10 BP 124/74 01/13/23 17:10 Contractions Monitor mode: External Contraction pattern: Irregular Contraction intensity: Mild Assessment Station: -1 Amniotic Membrane Status: SROM (>48 hours) Status: Category ll Heart Rate Baseline: 150 Wall Covering Contractor Variability: Moderate (6-25) Monitor Accelerations: Present Plan Plan: Assessment:?? at 41.1 gestation?? GBS neg Patient is coping well with challenges of labor.? Nasra is agreeable to starting IV Pitocin per protocol at this time. Labor type: Early labor? complicated by: AMA >35 yr, FGR, 7% on initial measurements, last measurement showed 14% measuring small for dates, hx of genital herpes, THC use in early Labor complicated by: PROM for >48 hours without onset of labor? Plan:?? * IV access: SL * Augmentation with IV Pitocin per protocol. * Monitoring per policy: continuous ? * Candidate for analgesia of choice.? Planning no intervention for pain management, may consider Nitrous. May have analgesia of choice as pt desires. * Monitor for s/s infection * Patient encouraged to reposition and ambulate to promote physiologic labor and . * Anticipate ??
[2023-01-13] MEDS: LACTATED RINGERS 1000 ML 1,000 ML 125 ML IV (18:16)
[2023-01-13] MEDS: OXYTOCIN 30 unit/500 ML in NS 30 UNIT/500 ML BAG IVPB (18:17)
--- NOTE | 2023-01-13 20:43 | PM.OBPNL ---
Subjective Date Seen: 01/13/23 Narrative: ?Nasra is coping well with labor pain/contractions. ?She was recently in the tub and got out for pt requested cervical exam and because she was feeling hot. ?She would like to try Nitrous for comfort and pain management.? Objective Exam: VSS, afebrile General Appearance:? Calm, cooperative. ?No acute distress. ? Psychiatric Exam: Alert and oriented, appropriate affect Abdomen: Gravid Ctx: ?Q 2-3 min apart. ? ? ?Strong FHTs: ?Baseline: 130. ? ? Variability: moderate. ?Accels: +. ? ?Decels: ?occasional late decels. SVE: 5/100%/-1 Membranes: ?SROM X 65 hours Vital Signs: Last Vital Signs Temp 97.8 F 01/13/23 19:37 Pulse 82 01/13/23 20:28 BP 138/75 01/13/23 20:28 Pulse Ox 100 01/13/23 19:43 Pelvic Exam Dilation (cm): 5 Effacement (%): 100 Station: -1 Contractions Monitor mode: External Contraction Frequency: 2-3 Contraction pattern: Regular Contraction intensity: Mild Pitocin Rate (mU/min): 2 Assessment Assessment: active labor and induction ongoing Station: -1 Amniotic Membrane Status: SROM (>48 hours) Status: Category ll Heart Rate Baseline: 135 Skilled Nursing Variability: Moderate (6-25) Monitor Accelerations: Present Monitor Decelerations: Late (occasional) Plan Plan: Assessment:?? at 41.1 gestation?? GBS neg Patient is coping with challenges of labor.?? Labor type: Spontaneous, Active labor? complicated by: AMA >35 yr, FGR, 7% on initial measurements, last measurement showed 14% measuring small for dates, hx of genital herpes, THC use in early Labor complicated by: PROM for >48 hours without onset of labor? Requested vaginal exam by pt, good cervical change with IV Pitocin. Plan:?? IV access: IV infusing for Pitocin Augmentation per protocol, currently at 2mu/hr. Monitoring per policy: continuous ? Candidate for analgesia of choice.? Requested to try Nitrous at this time. Close monitoring of vital signs for s/s infection Patient encouraged to reposition and ambulate to promote physiologic labor and . Anticipate ??
[2023-01-14] VITALS (22 sets, daily range): BP systolic 111–126; BP diastolic 65–84; PULSE 70–96; RESP 16–18; TEMP 36.5–37.2; O2SAT 97–100
[2023-01-14] MEDS: LIDOCAINE 1 % PF 30 ML INJECTION (00:52)
--- NOTE | 2023-01-14 01:16 | W.PM.VAGD1_ITS ---
Procedure Procedure Done: [facility] Procedure Details: The patient is a 37 year-old G 5 P 0-0-4-0 woman admitted on 01/13/2023 at 41 Weeks, 1 Day gestation for prolonged pre-labor rupture membranes with new onset of meconium-stained fluid. She had had a rupture membranes at approximately 4:00 a.m. on 01/11/2023. She had declined induction of labor multiple times prior to consenting to admission.? The 1st cervical exam after admission was 2 cm/100 % effaced/-1 station with membranes ruptured in vertex presentation.? Contractions were infrequent.? heart rate demonstrated baseline 120 bpm with moderate variability, positive accelerations, negative decelerations; a category 1 tracing.? Labor Analgesia:? Nitrous oxide ? Pitocin:? Yes ? Labor onset:? 8:00 p.m. on 01/13 ? Complete:? 9:33 p.m. on 01/13 ? Pushing:? 9:33 p.m. ? She was cared for by Mack Lassiter CNM throughout her labor course. I was consulted during second stage for concerns regarding lack of progress in labor and maternal exhaustion. Upon presenting to examined the patient, I found that the heart rate was also of concern. There were recurrent variable and suspected late decelerations beginning around 10:00 p.m.. The shape of the suspected late decelerations was consistent with late decelerations but timing as compared to contractions cannot be confirmed on review of the strip. heart tones were below the previously established baseline of 120 since around 10:12 p.m., in the 100s much of the time, with rec urrent deceleration as low as the 70s. Upon my arrival, after review the heart rate tracing, I recommended vacuum assisted vaginal delivery. I briefly discussed the risk of bruising and bleed ing of the infant scalp, and the need for Nasra to push while I pulled with the vacuum. Verbal consent was obtained. Her bladder was straight catheterized for small amount of urine. On my exam, she was able to bring vertex to +3 station with pushing, and direct OA presentation was suspected. Vacuum was placed over the vertex, and traction was applied over the course of 1 contraction. ? At 12:46 a.m. on 01/14, a viable female infant delivered in vertex direct OP presentation over second-degree perineal laceration via vacuum assisted vaginal delivery.? was placed on maternal abdomen.? Cord was clamped and cut after a 30-60 second delay.? Nose and mouth were bulb suctioned.? weight pending.? 8 at 1 minute and 8 at 5 minutes.? Shoulder dystocia: No.? Nuchal cord: Yes. In addition, there was a true knot in the umbilical cord. ? Placenta delivered spontaneously and complete at 12:48 AM with a 3 vessel cord. It was sent to pathology for further analysis. ? Mother and infant were stable after delivery. ? Lacerations:? Second-degree midline perineal, repaired with 2-0 Vicryl in the usual fashion after infiltration with 10 mL of 1% lidocaine. ? Blood loss: 100 mL. Blood loss measurement type: QBL ? Sponge and needles counts are correct. Events: Prolonged Rupture of Membrane and Meconium Stained Fluid Intrapartal Events: Labor Induction and Mod/Heavy Meconium Fluid Delivery augmentation: rupture of membranes and pitocin Delivery monitor: internal FHT Route of delivery: vacuum extraction Indication for instrumentation: nonreassuring FHR tracing Episiotomy description: None Laceration description: Perineal - 2nd Degree Delivery repair: Vicryl Estimated blood loss (mL): 100 Anesthesia type: Local Disposition: floor Infant Gender: Female presentation: vertex Placental Delivery Description: Spontaneous Cord Description: 3 Vessels
--- NOTE | 2023-01-14 01:21 | PM.OBPNL ---
Subjective Date Seen: 01/14/23 Narrative: Nasra pushed with good effort. After approximately one hour there was difficulty monitoring the FHR so a FSE was placed. FHR at that time was 105-110 with moderate variability, + accelerations with early and late decelerations seen. Continued pushing with good progress, multiple position changes were made and pt was pushing with good progress. At 0020 decision was made to consult Dr. Segundo for potential vacuum delivery for concerns with FHR and maternal exhaustion. Dr. Segundo called and came to bedside, see her note for details. Objective Vital Signs: Last Vital Signs Temp 97.8 F 01/13/23 20:28 Pulse 84 01/14/23 01:21 Resp 20 01/13/23 20:28 BP 126/84 01/14/23 01:21 Pulse Ox 99 01/13/23 22:59 Contractions Monitor mode: External Contraction pattern: Regular Contraction intensity: Strong/Firm Assessment Station: -1 Amniotic Membrane Status: SROM (>48 hours)
[2023-01-14] MEDS: VALACYCLOVIR HCL 500 MG TABLET PO ×2 (08:29→21:21)
[2023-01-14] MEDS: DOCUSATE SODIUM 100 MG CAPSULE PO (08:29)
[2023-01-15] VITALS: BP 122/70; PULSE 66; RESP 16; TEMP 36.7; O2SAT 98
[2023-01-15 06:42] LABS: Hemoglobin* 10.9 gm/dL (12.0-16.0)
[2023-01-15 08:12] VITALS: BP 103/68; PULSE 60; RESP 16; TEMP 36.7
[2023-01-15] MEDS: DOCUSATE SODIUM 100 MG CAPSULE PO (08:16)
[2023-01-15] MEDS: VALACYCLOVIR HCL 500 MG TABLET PO ×2 (08:16→21:15)
--- NOTE | 2023-01-15 11:58 | P.DS_ITS ---
DS: Providers Provider Date Seen: 01/15/23 Date of admission: 01/13/23 09:43 Primary care physician: Mack Lassiter CNM Admitting Clinician: Mack Lassiter CNM Consults: 01/13/23 09:14 Consult to Mine Equipment Design Engineer [CONS] Routine Comment: Reason for Consult:: Substance Abuse Screening 01/13/23 12:15 Consult to Physician [CONS] Routine Comment: Consulting Provider: Kelli Segundo Has provider been notified: Yes Attending Physician on discharge: Mack Lassiter CNM Date of Discharge: 01/15/23 DS: Diagnosis Discharge Diagnosis (1) Lactating mother: Status: Acute (2) care following vaginal delivery: Status: Acute (3) Status post vacuum-assisted vaginal delivery: Status: Acute Exam Narrative: Exam Narrative: GENERAL APPEARANCE:? normal affect, alert, no distress? MOOD:? appropriate? CHEST:? clear to auscultation and percussion? HEART:? regular rate and rhythm? ABDOMEN:? soft, non-tender the uterine fundus is 2 cm Below Umbilicus, Midline and is appropriate for the stage of recovery. ? PERINEUM:? mild edema of the perineum, there is a 2nd degree that is healing well.? EXTREMITIES:? normal and no edema? Patient has no complaints? No active bleeding?? Doing well? She is requesting discharge home.? Const: Vital Signs, click to edit/add: Vital Signs - 24 hr 01/14/23 12:10 01/14/23 15:22 01/14/23 20:00 Temperature 98 F 98.1 F 98.3 F Pulse Rate [Blood Pressure Cuff] 75 82 79 Respiratory Rate 16 16 18 Blood Pressure [Ri ght Arm] 115/78 114/75 120/81 Pulse Oximetry 100 100 97 Oxygen Delivery Me thod Room Air 01/15/23 00:00 01/15/23 08:12 Temperature 98.0 F 98.0 F Pulse Rate [Blood Pressure Cuff] 66 60 Respiratory Rate 16 16 Blood Pressure [Ri ght Arm] 122/70 103/68 Pulse Oximetry 98 Oxygen Delivery Me thod Room Air Documenting provider has reviewed patient's vital signs: yes OB - DS: Summary Hospital Course Hospital Course: The patient is a 37 year old G 5 P 1 at 41.2 weeks gestation that was admitted to the Center on 01/13/23 for prolonged PROM. She had been ruptured almost 3 days at the time of delivery. She had an vaginal deliver complicated by the prolonger ROM and need for vacuum assisted delivery due to intolerance and stalled progress with pushing. She delivered a viable female infant. She is breast feeding and states that it is going well and denies complications or concerns. the patient has done well. The pain is well controlled with current medications.? She has no new complaints.? Urinary output is adequate and she is voiding without difficulty.? Has a good appetite, is tolerating a general diet, is passing flatus, and has had a bowel movement.? Has small amount of rubra lochia.? She is ambulating well. She is not planning anything for control as she is not in a relationship, not sexually active and doesn't plan to be sexually active in the near future. Encouraged her to seek out contraception if she does return to sexual activity. We did have a discussion about staying until tomorrow and we reviewed the risks and benefits of discharge today and tomorrow. I did encourage discharge tomorrow but she would like to discharge today. Peripartum Data delivery method: Vaginal Laceration description: Perineal - 2nd Degree Episiotomy description: None complications: none Gender: Female Discharge Plan: Home Status at Discharge Functional status at discharge: independent ambulation Overall status at discharge: patient is progressing back to baseline Time Spent with Patient Time attestation: Total time spent providing and/or coordinating discharge services: Discharge Plan Discharge Disposition: Home, Self-Care Date of Admission: 01/13/23 09:43 Attending Provider on Discharge: Zulma Mendoza Consulting Providers: Kelli Segundo Primary Care Provider: Mack Lassiter Condition: Stable Anticipated Discharge Date/Time: 01/15/23 17:00 Discharge Medications: New docusate sodium 100 mg Capsule 100 mg PO DAILY Qty: 90 0RF Rx Instructions: Take 1-2 tablets daily as needed for constipation. ibuprofen 600 mg Tablet 600 mg PO Q6H PRNQty: 14 0RF Continued Classic 28 mg iron- 800 mcg tablet 4 tab PO DAILY Discontinued valacyclovir [Valtrex] 500 mg tablet 500 mg PO QDAY Discharge Orders: Discharge Order (Routine); Ordered 01/15/23 Ordered By: Zulma Mendoza Patient Education: OB Undelivered at 35 weeks IUP or more Additional Instructions: Discharge instructions were reviewed with the patient including signs and symptoms of infection and home going medications.? Lifting Restrictions: 20 pounds for 6? weeks? ?? Do not drive while taking narcotic pain meds.? Off Work or School for 6 weeks.? ?? Symptoms to report to doctor:? -Bleeding that saturates more than one pad per hour? -Passing clots larger than the size of a golf ball? -Pain not relieved by prescribed medication? -Fever above 100.4 degrees Fahrenheit? -A foul vaginal odor? -Difficulty in emotions, mood and functions? -Thoughts of hurting yourself and/or ? -Painful, reddened area in your breast? -Any drainage, redness or tenderness in your IV/epidural site? -Severe headache that doesn't improve after taking medications? -Changes in vision, including temporary loss of vision, blurred vision, and/or light sensitivity? -Upper abdominal pain (usually under ribs on the right side)? -Decrease in urination or painful, frequent urinating? -Chest pain? -Shortness of breath? -Tenderness or pain with redness and/swelling in the calf(s) of your leg? ?? Follow Up in clinic in 2 and 6 weeks.? ?? consultation services are available to all mothers and babies for the first year after delivery.? To make an appointment, please call [phone].? Patient verbalized understanding of reviewed discharge instructions. Follow Up Appointments: [facility] [Provider Group] Mack Lassiter CNM [Primary Care Provider] - Forms: [employer] Info Instructions
[2023-01-15 15:54] VITALS: BP 109/70; PULSE 64; RESP 16; TEMP 36.7
[2023-01-15] MEDS: ACETAMINOPHEN 500 MG TABLET 1000 MG PO (21:15)
[2023-01-15 23:07] VITALS: BP 121/77; PULSE 65; RESP 18; O2SAT 98
[2023-01-16 07:49] VITALS: BP 127/87; PULSE 71; RESP 16; TEMP 36.7; O2SAT 97
--- NOTE | 2023-01-16 08:21 | P.DS_ITS ---
DS: Providers Provider Date Seen: 01/16/23 Date of admission: 01/13/23 09:43 Primary care physician: Mack Lassiter CNM Admitting Clinician: Mack Lassiter CNM Consults: 01/13/23 09:14 Consult to Executive Associate [CONS] Routine Comment: Reason for Consult:: Substance Abuse Screening 01/13/23 12:15 Consult to Physician [CONS] Routine Comment: Consulting Provider: Kelli Segundo Has provider been notified: Yes Attending Physician on discharge: Mack Lassiter CNM Exam Const: Vital Signs, click to edit/add: Vital Signs - 24 hr 01/15/23 15:54 01/15/23 23:07 01/16/23 07:49 Temperature 98.1 F 98.0 F Pulse Rate [Blood Pressure Cuff] 64 65 71 Respiratory Rate 16 18 16 Blood Pressure [Ri ght Arm] 109/70 121/77 127/87 Pulse Oximetry 98 97 Oxygen Delivery Me thod Room Air Room Air OB - DS: Summary Hospital Course Hospital Course: The patient is a 37 year old G [] P [] at [] weeks gestation that was admitted to the Center on 01/13/23 for []. She had an [uncomplicated/complicated] [vaginal/] delivery. She delivered a viable [male/female] . She is [breast/bottle] feeding. the patient has done well. [place] Gender: Female Discharge Plan: Home Time Spent with Patient Time attestation: Total time spent providing and/or coordinating discharge services: Discharge Plan Discharge Disposition: Home, Self-Care Date of Admission: 01/13/23 09:43 Attending Provider on Discharge: Zulma Mendoza Consulting Providers: Kelli Segundo; Candelaria Espana Janelle L Primary Care Provider: Mack Lassiter Condition: Stable Anticipated Discharge Date/Time: 01/16/23 13:00 Discharge Medications: New docusate sodium 100 mg Capsule 100 mg PO DAILY Qty: 90 0RF Rx Instructions: Take 1-2 tablets daily as needed for constipation. ibuprofen 600 mg Tablet 600 mg PO Q6H PRNQty: 14 0RF Continued Classic 28 mg iron- 800 mcg tablet 4 tab PO DAILY Discontinued valacyclovir [Valtrex] 500 mg tablet 500 mg PO QDAY Discharge Orders: Discharge Order (Routine); Ordered 01/16/23 Ordered By: Candelaria Espana Patient Education: OB Over the Counter Medication Information, OB Vaginal/Breast Feeding Additional Instructions: Discharge instructions were reviewed with the patient including signs and symptoms of infection and home going medications.? Lifting Restrictions: 20 pounds for 6? weeks? ?? Do not drive while taking narcotic pain meds.? Off Work or School for 6 weeks.? ?? Symptoms to report to doctor:? -Bleeding that saturates more than one pad per hour? -Passing clots larger than the size of a golf ball? -Pain not relieved by prescribed medication? -Fever above 100.4 degrees Fahrenheit? -A foul vaginal odor? -Difficulty in emotions, mood and functions? -Thoughts of hurting yourself and/or ? -Painful, reddened area in your breast? -Any drainage, redness or tenderness in your IV/epidural site? -Severe headache that doesn't improve after taking medications? -Changes in vision, including temporary loss of vision, blurred vision, and/or light sensitivity? -Upper abdominal pain (usually under ribs on the right side)? -Decrease in urination or painful, frequent urinating? -Chest pain? -Shortness of breath? -Tenderness or pain with redness and/swelling in the calf(s) of your leg? ?? Follow Up in clinic in 2 and 6 weeks.? ?? consultation services are available to all mothers and babies for the first year after delivery.? To make an appointment, please call [phone].? Patient verbalized understanding of reviewed discharge instructions. Activity Level: Activity as Tolerated Discharge Diet: Regular Follow Up Appointments: [facility] [Provider Group] Mack Lassiter CNM [Primary Care Provider] - Forms: [employer] Info Instructions
--- NOTE | 2023-01-16 08:21 | PM.OBPNVD1 ---
OB - PN:Subj Subjective Time Seen by Provider: 08:21 Date Seen: 01/16/23 Interval history: Nasra is a 37 y.o. who was admitted to [facility] for prolonged ROM.? She had an uncomplicated NVD.? ? ? Narrative: The patient feels well.? The pain is well controlled with current medications.? She has no new complaints.? She is breast feeding and reports things are going well.? the patient has done well.? Vitals have been stable.? She has remained afebrile.? Has a good appetite, is tolerating a general diet.? She is voiding without difficulty.? She is passing gas and has had a bowel movement.? She is ambulating and denies any dizziness.? Has Small amount of rubra lochia.?She was discharged yesterday, but then chose to stay an additional day. OB - PN: Obj Exam Physical Exam: Vital signs: Temp Pulse Resp BP Pulse Ox O2 Del Method 98.0 F 71 16 127/87 97 Room Air 01/16/23 07:49 01/16/23 07:49 01/16/23 07:49 01/16/23 07:49 01/16/23 07:49 01/16/23 07:49 Narrative: GENERAL APPEARANCE:? normal affect, alert, no distress? MOOD:? appropriate? HEENT: normocephalic, neck supple, full ROM? CHEST:? Symmetrical chest wall movement.? Normal respiratory effort.? Clear to auscultation ? HEART:? regular rate and rhythm? ABDOMEN:? soft, non-tender. Uterine fundus is firm, at Umbilicus, Midline and is appropriate for the stage of recovery.? Bowel sounds present.? PERINEUM:? mild edema of the perineum, there is a second degree laceration that is healing well.? EXTREMITIES:? normal and no edema? OB - PN: A/P Delivery Assessment and Plan (1) Lactating mother: Status: Acute (2) care following vaginal delivery: Status: Acute (3) Status post vacuum-assisted vaginal delivery: Status: Acute Plan day: 2 Plan: routine care Comments: G 5 P 1 status post uncomplicated NVD? ?? 1.? Continue route PP cares? 2.? .? May see if desired? 3.? Anticipate discharge home tomorrow?
[2023-01-16] MEDS: VALACYCLOVIR HCL 500 MG TABLET PO (08:47)
== END 2023-01-16 12:50 | disposition home or self-care (01) | DRG 806 ==
LOC: OB CLI 09:44 → OB 09:44
PROVIDERS: Obstetrics & Gynecology; Admitting Provider Advanced Practice Midwife; PCP Advanced Practice Midwife; Visit Provider Advanced Practice Midwife
DX: O42.12 Full-term premature rupture of membranes, onset of labor more than 24 hours following rupture (principal); O98.32 Other infections with a predominantly sexual mode of transmission complicating childbirth; Z37.0 Single live birth; O76 Abnormality in fetal heart rate and rhythm complicating labor and delivery; O75.81 Maternal exhaustion complicating labor and delivery; O77.0 Labor and delivery complicated by meconium in amniotic fluid; O70.1 Second degree perineal laceration during delivery; O48.0 Post-term pregnancy; A60.00 Herpesviral infection of urogenital system, unspecified; Z3A.41 41 weeks gestation of pregnancy
CPT/HCPCS: 36415; 59200; 80306; 85018; 85025; 88307; A9270; C1726; J2001; J7120